=== PATIENT | female | born 1975 | race American Indian/Alaskan Native ===

== ENCOUNTER 2016-12-16 17:45 | Emergency (ER) | payer OTHER, BC ==
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
[2016-12-16] MEDS ORDERED: TORADOL IM ONE (22:59)
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
[2016-12-17] VITALS: BP 142/96
== END 2016-12-16 23:58 | disposition home or self-care (01) ==
LOC: ED 17:45
DX: S39.012A Strain of muscle, fascia and tendon of lower back, initial encounter (principal); I10 Essential (primary) hypertension; E11.9 Type 2 diabetes mellitus without complications; V89.2XXA Person injured in unspecified motor-vehicle accident, traffic, initial encounter; Y93.9 Activity, unspecified; Y92.9 Unspecified place or not applicable; Y99.9 Unspecified external cause status
CPT/HCPCS: 72072; 72100; 96372; 99283; J1885